=== PATIENT | male | born 1950 | race Caucasian/White ===

== ENCOUNTER → 2021-01-10 | Day surgery (SDC) | payer MEDICARE, BC ==
[~2021-01-10] MED LIST: AMLODIPINE-BEN1 EAC1 PO; BAYER CHEWABLE81 MG PO; CIPRO500 MG/5 M PO; GLIPIZIDE ER5 MG PO; GLUCOPHAGE XR500 M1 PO; HYDROCHLOROTHIA25 MG PO; LANTUS SOL100 UNIT/1 SQ; LATANOPROST2.5 ML OP; NOVOLOG FL100 UNIT/1 INJ; VARDENAFIL HCL20 MG PO
== END | disposition home or self-care (01) ==
LOC: OR 07:38
PROVIDERS: Urology
PROC: 0VB03ZX Excision of Prostate, Percutaneous Approach, Diagnostic (ICD-10-PCS; principal; 2021-01-10 13:00)
DX: N41.9 Inflammatory disease of prostate, unspecified (principal); N42.89 Other specified disorders of prostate; Z20.822 Contact with and (suspected) exposure to COVID-19; Z79.82 Long term (current) use of aspirin; Z79.2 Long term (current) use of antibiotics; Z79.899 Other long term (current) drug therapy; Z79.4 Long term (current) use of insulin; Z87.891 Personal history of nicotine dependence
CPT/HCPCS: 82962; J7040; J7120

== ENCOUNTER → 2021-04-01 | Day surgery (SDC) | payer MEDICARE, BC ==
[~2021-04-01] MED LIST changes: +COLACE100 MG PO; +HYDROCODON-ACE1 EAC4 PO
== END | disposition home or self-care (01) ==
LOC: OR 05:34
DX: D17.1 Benign lipomatous neoplasm of skin and subcutaneous tissue of trunk (principal); N40.0 Benign prostatic hyperplasia without lower urinary tract symptoms; R97.20 Elevated prostate specific antigen [PSA]; I10 Essential (primary) hypertension; E11.9 Type 2 diabetes mellitus without complications; Z87.891 Personal history of nicotine dependence; Z79.82 Long term (current) use of aspirin; Z79.4 Long term (current) use of insulin; Z79.899 Other long term (current) drug therapy
CPT/HCPCS: 82962; J0690; J1100; J2001; J2405; J2704; J3010; J7120